=== PATIENT | male | born 1935 | race Hispanic/Latino ===

== ENCOUNTER 2016-10-11 13:01 | Inpatient (IN) | payer MEDICARE, OTHER ==
[~2016-10-11] VITALS: Ht 152.4 cm; Wt 81.2 kg
[2016-10-11] VITALS (7 sets, daily range): BP systolic 75–96; BP diastolic 39–60
[~2016-10-11 13:01] MED LIST: ADVAIR DISK1 IN; ALL DAY10 MG PO; ALLOPURINOL300 MG PO; AMLODIPINE2.5 MG PO; AMLODIPINE5 MG PO; AUGMENTIN500TAB PO; AUGMENTIN875TAB PO; BACLOFEN10 MG PO; CARDIZEM CD 180 PO; CEPHALEXIN500 MG PO; CIPRO500 MG PO; COMBIVENT INH; COREG6.25 MG PO; DOXAZOSIN1 MG PO; ECOTRIN LOW STR81 MG PO; FLOMAX0.4 M1 PO; FLONASE NASAL50 MCG; FLUTICASONE50 MCG; GABAPENTIN300 MG PO; HYDROCO/APAP1 TA9 PO; IMODIUM2 MG PO; IPRATROPIU0.5 MG/3 M NEB; KLOR-CON M2020 MEQ PO; LASIX 40 MG TAB40 MG PO; LASIX 40 MG40 MG/TAB PO; LISINOPRIL10 MG PO; LORTAB 5-325 MG1 TAB PO; LORTAB 7.5 PO; LORTAB 7.57.5 MG PO; LOSARTAN POT50 MG PO; MELOXICAM15 MG PO; MELOXICAM7.5 MG PO; MORPHINE SUL15 MG PO; OMEPRAZOLE20 M2 PO; PERCOCET 5/325M1 TAB PO; PREDNISONE10 MG PO; RESTORIL15 M1 PO; ROBITUSSIN AC10 ML PO; SILDENAFIL20 MG PO; SINGULAIR PO; SYMBICORT1 AE1 IN; TRAZODONE100 MG PO; VANCOMYCIN HCL1.5GM IV; VENTOLIN HFA IN; ZOFRAN ODT4 MG SL
[2016-10-11 13:23] LABS: HEMATOCRIT 30.4 % (39.0-50.0); HEMOGLOBIN 10.3 g/dl (14.0-18.0); MEAN CELL VOLUME 94.4 fL CALC (80.0-100.0); MEAN CORPUSCULAR HGB CONC 33.9 g/L CALC (32.0-36.0); NEUT# 1.72 thou/uL (1.82-7.42); RED BLOOD COUNT 3.22 mill/uL (4.70-6.10); RED CELL DISTRI WIDTH 12.2 % (11.5-15.5)
[2016-10-11 13:35] LABS: ALBUMIN 3.8 g/dL (3.2-5.0); ALKALINE PHOSPHATASE 239 u/l (38-126); ANION GAP 14 (6-22 (CALC)); BILIRUBIN, TOTAL 0.9 mg/dL (0.0-1.4); BUN 17 mg/dL (8-23); BUN/CREATININE RATIO 16 (12-20 (CALC)); CALCIUM 8.1 mg/dL (8.4-10.2); CARBON DIOXIDE 25 mmol/l (22-30); CHLORIDE 107 mmol/l (95-108); CREATININE 1.1 mg/dL (0.7-1.3); GFR > 60 ML/MIN (>=60 (CALC)); GFR FOR AFR.AMER. > 60 ML/MIN (>=60 (CALC)); GLUCOSE 90 mg/dL (82-115); POTASSIUM 4.3 mmol/l (3.5-5.1); SGOT/AST 34 u/l (19-48); SGPT/ALT 27 u/l (11-66); SODIUM 142 mmol/l (137-146); TOTAL PROTEIN 6.8 g/dL (6.3-8.2)
[2016-10-11 13:47] LABS: MYOGLOBIN 81 ng/mL (0 - 121)
[2016-10-11 13:58] LABS: URINE BILIRUBIN - DIPSTICK NEGATIVE (NEGATIVE); URINE BLOOD DIPSTICK MODERATE (NEGATIVE); URINE CLARITY CLEAR; URINE COLOR YELLOW; URINE GLUCOSE - DIPSTICK NEGATIVE (NEGATIVE); URINE KETONE NEGATIVE (NEGATIVE); URINE LEUK ESTERASE NEGATIVE (NEGATIVE); URINE NITRITE - DIPSTICK NEGATIVE (Negative); URINE PROTEIN - DIPSTICK NEGATIVE (NEG-TRACE); URINE UROBILINOGEN - DIPSTICK 0.2 E.U./dL (0.2)
[2016-10-11 14:08] LABS: URINE WBC 0-2 WBC/hpf (0-5)
[2016-10-11] MEDS ORDERED: BICALUTAMIDE50 MG PO (16:15)
[2016-10-11] MEDS ORDERED: ISOSORB MONO30 MG PO (16:16)
[2016-10-11] MEDS ORDERED: LOSARTAN POT50 MG PO ×2 (17:04→17:42)
[2016-10-11] MEDS ORDERED: OMEPRAZOLE20 MG PO (17:06)
[2016-10-11] MEDS ORDERED: MELOXICAM15 MG PO (17:07)
[2016-10-11] MEDS ORDERED: FERR SULFATE325 MG PO (17:24)
[2016-10-11] MEDS ORDERED: METOPROL TAR25 M1 PO (17:41)
[2016-10-11] MEDS ORDERED: REVATIO20 MG PO (17:42)
[2016-10-11] MEDS ORDERED: ASPIRIN81 MG PO (17:45)
[2016-10-11] MEDS ORDERED: KLOR-CON M2020 MEQ PO (17:46)
[2016-10-11] MEDS ORDERED: MONTELUKAST SOD10 MG PO (17:46)
[2016-10-11 21:43] LABS: MAGNESIUM 1.4 mg/dL (1.6-2.3)
[2016-10-11 21:45] LABS: INTERNATIONAL NORMALIZED RATIO 1.1 RATIO (0.7-1.3); PROTHROMBIN TIME 11.9 SECONDS (9.0-12.5)
[2016-10-12] VITALS (11 sets, daily range): BP systolic 102–155; BP diastolic 49–80
[2016-10-12 05:24] LABS: HEMATOCRIT 29.3 % (39.0-50.0); HEMOGLOBIN 9.7 g/dl (14.0-18.0); IMMATURE GRANULOCYTES 0.6 % (0.0-1.0); MEAN CELL VOLUME 96.7 fL CALC (80.0-100.0); MEAN CORPUSCULAR HGB CONC 33.1 g/L CALC (32.0-36.0); NEUT# 3.79 thou/uL (1.82-7.42); RED BLOOD COUNT 3.03 mill/uL (4.70-6.10); RED CELL DISTRI WIDTH 12.6 % (11.5-15.5)
[2016-10-12 05:37] LABS: ALBUMIN 2.8 g/dL (3.2-5.0); ALKALINE PHOSPHATASE 155 u/l (38-126); AMYLASE 60 u/l (30-110); ANION GAP 13 (6-22 (CALC)); BUN 18 mg/dL (8-23); BUN/CREATININE RATIO 16 (12-20 (CALC)); CALCIUM 7.5 mg/dL (8.4-10.2); CARBON DIOXIDE 21 mmol/l (22-30); CHLORIDE 113 mmol/l (95-108); CREATININE 1.1 mg/dL (0.7-1.3); GFR > 60 ML/MIN (>=60 (CALC)); GFR FOR AFR.AMER. > 60 ML/MIN (>=60 (CALC)); GLUCOSE 70 mg/dL (82-115); POTASSIUM 4.4 mmol/l (3.5-5.1); SGOT/AST 36 u/l (19-48); SGPT/ALT 27 u/l (11-66); SODIUM 143 mmol/l (137-146); TOTAL PROTEIN 5.2 g/dL (6.3-8.2)
[2016-10-12 20:17] LABS: TSH, 3RD GENERATION 0.57 uIU/mL (0.47 - 4.68)
[2016-10-13] VITALS (18 sets, daily range): BP systolic 90–131; BP diastolic 38–58
[2016-10-13 03:41] LABS: HEMATOCRIT 31.2 % (39.0-50.0); HEMOGLOBIN 9.6 g/dl (14.0-18.0); IMMATURE GRANULOCYTES 2.3 % (0.0-1.0); MEAN CORPUSCULAR HGB 31.4 pG CALC (26.0-32.0); MEAN CORPUSCULAR HGB CONC 30.8 g/L CALC (32.0-36.0); NEUT# 7.98 thou/uL (1.82-7.42); RED BLOOD COUNT 3.06 mill/uL (4.70-6.10); RED CELL DISTRI WIDTH 12.8 % (11.5-15.5)
[2016-10-13 03:47] LABS: ALBUMIN 3.4 g/dL (3.2-5.0); ALKALINE PHOSPHATASE 140 u/l (38-126); ANION GAP 15 (6-22 (CALC)); BILIRUBIN, TOTAL 0.7 mg/dL (0.0-1.4); BUN 23 mg/dL (8-23); BUN/CREATININE RATIO 18 (12-20 (CALC)); CALCIUM 8.6 mg/dL (8.4-10.2); CARBON DIOXIDE 21 mmol/l (22-30); CHLORIDE 115 mmol/l (95-108); CREATININE 1.3 mg/dL (0.7-1.3); GFR 53 ML/MIN (>=60 (CALC)); GFR FOR AFR.AMER. > 60 ML/MIN (>=60 (CALC)); GLUCOSE 50 mg/dL (82-115); SGOT/AST 55 u/l (19-48); SGPT/ALT 34 u/l (11-66); SODIUM 146 mmol/l (137-146); TOTAL PROTEIN 6.3 g/dL (6.3-8.2)
[2016-10-13 03:51] LABS: POTASSIUM 5.2 mmol/l (3.5-5.1)
[2016-10-13] MEDS ORDERED: BICALUTAMIDE50 MG PO (17:14)
[2016-10-14] VITALS (21 sets, daily range): BP systolic 11–151; BP diastolic 35–71
[2016-10-14 05:46] LABS: HEMATOCRIT 28.6 % (39.0-50.0); HEMOGLOBIN 9.2 g/dl (14.0-18.0); IMMATURE GRANULOCYTES 1.6 % (0.0-1.0); MEAN CELL VOLUME 97.3 fL CALC (80.0-100.0); MEAN CORPUSCULAR HGB 31.3 pG CALC (26.0-32.0); MEAN CORPUSCULAR HGB CONC 32.2 g/L CALC (32.0-36.0); NEUT# 6.46 thou/uL (1.82-7.42); RED BLOOD COUNT 2.94 mill/uL (4.70-6.10); RED CELL DISTRI WIDTH 12.9 % (11.5-15.5)
[2016-10-14 06:05] LABS: CALCIUM 8.6 mg/dL (8.4-10.2); CREATININE 1.6 mg/dL (0.7-1.3); POTASSIUM 3.5 mmol/l (3.5-5.1)
[2016-10-15] VITALS (17 sets, daily range): BP systolic 118–171; BP diastolic 51–83
[2016-10-15 05:56] LABS: HEMOGLOBIN 9.4 g/dl (14.0-18.0); MEAN CELL VOLUME 99.3 fL CALC (80.0-100.0); MEAN CORPUSCULAR HGB 31.1 pG CALC (26.0-32.0); MEAN CORPUSCULAR HGB CONC 31.3 g/L CALC (32.0-36.0); NEUT# 14.25 thou/uL (1.82-7.42); RED BLOOD COUNT 3.02 mill/uL (4.70-6.10); RED CELL DISTRI WIDTH 13.1 % (11.5-15.5)
[2016-10-15 06:18] LABS: CALCIUM 8.8 mg/dL (8.4-10.2); CREATININE 1.6 mg/dL (0.7-1.3); POTASSIUM 3.6 mmol/l (3.5-5.1)
[2016-10-15 06:25] LABS: IMMATURE GRANULOCYTES 5.4 % (0.0-1.0)
[2016-10-16] VITALS (16 sets, daily range): BP systolic 99–173; BP diastolic 51–69
[2016-10-16 06:37] LABS: HEMOGLOBIN 9.8 g/dl (14.0-18.0); MEAN CELL VOLUME 97.7 fL CALC (80.0-100.0); MEAN CORPUSCULAR HGB 31.9 pG CALC (26.0-32.0); MEAN CORPUSCULAR HGB CONC 32.7 g/L CALC (32.0-36.0); NEUT# 5.08 thou/uL (1.82-7.42); RED BLOOD COUNT 3.07 mill/uL (4.70-6.10); RED CELL DISTRI WIDTH 13.3 % (11.5-15.5)
[2016-10-16 06:38] LABS: IMMATURE GRANULOCYTES 10.1 % (0.0-1.0)
[2016-10-16 06:57] LABS: ANION GAP 13 (6-22 (CALC)); BUN 40 mg/dL (8-23); BUN/CREATININE RATIO 33 (12-20 (CALC)); CALCIUM 8.8 mg/dL (8.4-10.2); CARBON DIOXIDE 26 mmol/l (22-30); CHLORIDE 110 mmol/l (95-108); CREATININE 1.2 mg/dL (0.7-1.3); GFR 58 ML/MIN (>=60 (CALC)); GFR FOR AFR.AMER. > 60 ML/MIN (>=60 (CALC)); GLUCOSE 83 mg/dL (82-115); POTASSIUM 3.1 mmol/l (3.5-5.1); SODIUM 146 mmol/l (137-146)
== END 2016-10-16 19:20 | disposition short-term general hospital (02) | DRG 871 ==
LOC: ED 13:01 → ED-I 13:11 → ED 13:11 → ED-I 15:50 → ED 16:24 → ED-I 16:25 → ICU 16:25
PROVIDERS: Emergency Medicine; Internal Medicine; ADMIT Internal Medicine; ATTEND Internal Medicine
PROC: 0T9B70Z Drainage of Bladder with Drainage Device, Via Natural or Artificial Opening (ICD-10-PCS; 2016-10-11)
PROC: 5A0945Z Assistance with Respiratory Ventilation, 24-96 Consecutive Hours (ICD-10-PCS; principal; 2016-10-15)
DX: A41.59 Other Gram-negative sepsis (principal); J15.6 Pneumonia due to other Gram-negative bacteria; J96.21 Acute and chronic respiratory failure with hypoxia; I50.33 Acute on chronic diastolic (congestive) heart failure; N17.9 Acute kidney failure, unspecified; C79.51 Secondary malignant neoplasm of bone; J44.0 Chronic obstructive pulmonary disease with (acute) lower respiratory infection; E83.42 Hypomagnesemia; I13.0 Hypertensive heart and chronic kidney disease with heart failure and stage 1 through stage 4 chronic kidney disease, or unspecified chronic kidney disease; E87.2 Acidosis; R65.20 Severe sepsis without septic shock; I49.1 Atrial premature depolarization; K46.9 Unspecified abdominal hernia without obstruction or gangrene; I27.2 Other secondary pulmonary hypertension; R19.5 Other fecal abnormalities; C61 Malignant neoplasm of prostate; D69.6 Thrombocytopenia, unspecified; N18.3 Chronic kidney disease, stage 3 (moderate); T50.8X5A Adverse effect of diagnostic agents, initial encounter; Z79.899 Other long term (current) drug therapy; Z86.14 Personal history of Methicillin resistant Staphylococcus aureus infection
CPT/HCPCS: J0692; J1650; J3370; Q9967

== ENCOUNTER 2017-08-19 10:09 | Emergency (ER) | payer MEDICARE, OTHER ==
[~2017-08-19] VITALS: Ht 152.4 cm; Wt 90.9 kg
[~2017-08-19 10:09] MED LIST changes: +ASPIRIN81 MG PO; +BICALUTAMIDE50 MG PO; +FERR SULFATE325 MG PO; -FLOMAX0.4 M1 PO; +ISOSORB MONO30 MG PO; +METOPROL TAR25 M1 PO; +MONTELUKAST SOD10 MG PO; +OMEPRAZOLE20 MG PO; +REVATIO20 MG PO; +TAMSULOSIN0.4 MG PO
[2017-08-19] MEDS ORDERED: LASIX 20 MG TAB20 MG PO (10:19)
[2017-08-19] MEDS ORDERED: MELATONIN3 M1 PO (10:20)
[2017-08-19] MEDS ORDERED: MULTI VIT PO (10:23)
[2017-08-19] MEDS ORDERED: POTASSIUM CHLO20 ME2 PO (10:25)
[2017-08-19] MEDS ORDERED: VITAMIN C250 MG PO (10:26)
[2017-08-19] MEDS ORDERED: NEURONTIN600 MG PO (10:28)
[2017-08-19] MEDS ORDERED: MORPHINE SULFAT15 M1 PO (10:28)
[2017-08-19] MEDS ORDERED: [UNRECOGNIZED DRUG - OTHER] OU (10:31)
[2017-08-19] MEDS ORDERED: ACETAMIN325 MG PO (10:32)
[2017-08-19] MEDS ORDERED: GAS-X ULTRA ST180 MG PO (10:35)
[2017-08-19] MEDS ORDERED: ROBITUSSIN AC10 ML PO (10:36)
[2017-08-19] MEDS ORDERED: NORCO1 TA2 PO (10:37)
[2017-08-19] MEDS ORDERED: DUONEB IN (10:37)
[2017-08-19 10:38] LABS: IMMATURE GRANULOCYTES 1.2 % (0.0-1.0); MEAN CELL VOLUME 101.4 fL CALC (80.0-100.0); MEAN CORPUSCULAR HGB 31.7 pG CALC (26.0-32.0); MEAN CORPUSCULAR HGB CONC 31.3 g/L CALC (32.0-36.0); NEUT# 4.42 thou/uL (1.82-7.42); RED BLOOD COUNT 2.9 mill/uL (4.70-6.10); RED CELL DISTRI WIDTH 11.9 % (11.5-15.5)
[2017-08-19] MEDS ORDERED: MILK OF MAG30 ML/UDC PO (10:38)
[2017-08-19 10:40] LABS: HEMATOCRIT 29.4 % (39.0-50.0); HEMOGLOBIN 9.2 g/dl (14.0-18.0)
[2017-08-19] MEDS ORDERED: BIOFREEZE4 % TOP (10:41)
[2017-08-19] MEDS ORDERED: [UNRECOGNIZED DRUG - OTHER] TOP (10:42)
[2017-08-19] MEDS ORDERED: OXYGEN NAB (10:43)
[2017-08-19 10:53] LABS: URINE BILIRUBIN - DIPSTICK NEGATIVE (NEGATIVE); URINE BLOOD DIPSTICK TRACE-INTACT (NEGATIVE); URINE COLOR YELLOW; URINE GLUCOSE - DIPSTICK NEGATIVE (NEGATIVE); URINE KETONE NEGATIVE (NEGATIVE); URINE LEUK ESTERASE NEGATIVE (Negative); URINE NITRITE - DIPSTICK NEGATIVE (Negative); URINE PH 5.5 (4.5-8.0); URINE PROTEIN - DIPSTICK NEGATIVE (NEG-TRACE); URINE SPECIFIC GRAVITY 1.015
[2017-08-19 11:01] LABS: URINE CLARITY CLEAR
[2017-08-19 11:24] LABS: ALKALINE PHOSPHATASE 304 u/l (38-126); BILIRUBIN, TOTAL 0.6 mg/dL (0.0-1.4); BUN 40 mg/dL (8-23); BUN/CREATININE RATIO 37 (12-20 (CALC)); CARBON DIOXIDE 35 mmol/l (22-30); CHLORIDE 93 mmol/l (95-108); CREATININE 1.1 mg/dL (0.7-1.3); GFR > 60 ML/MIN (>=60 (CALC)); GFR FOR AFR.AMER. > 60 ML/MIN (>=60 (CALC)); SGOT/AST 28 u/l (19-48); SGPT/ALT 27 u/l (11-66); SODIUM 139 mmol/l (137-146); TOTAL PROTEIN 6.5 g/dL (6.3-8.2)
[2017-08-19 11:26] LABS: ALBUMIN 3.2 g/dL (3.2-5.0); ANION GAP 16 (6-22 (CALC)); POTASSIUM 4.9 mmol/l (3.5-5.1)
[2017-08-19] MEDS ORDERED: MEDDOSEPAK PO (13:20)
[2017-08-19] MEDS ORDERED: LASIX20 MG PO (13:20)
[2017-08-19] MEDS ORDERED: LEVAQUIN500 MG PO (13:20)
[2017-08-19 13:42] VITALS: BP 120/55
--- NOTE | 2017-08-21 14:07 | NUR ---
PRELIMINARY CULTURE RESULTS CALLED TO ROB PEÑA AT [facility]. WILL FAX FINAL RESULTS WHEN THEY ARE AVALIBLE
== END 2017-08-19 13:35 | disposition home or self-care (01) ==
LOC: ED 10:09
PROVIDERS: Emergency Medicine
DX: J18.9 Pneumonia, unspecified organism (principal); I11.0 Hypertensive heart disease with heart failure; I50.9 Heart failure, unspecified; I25.2 Old myocardial infarction; R50.9 Fever, unspecified; R07.9 Chest pain, unspecified; R53.1 Weakness; C61 Malignant neoplasm of prostate; R06.02 Shortness of breath; Z86.11 Personal history of tuberculosis

== ENCOUNTER 2017-09-03 08:06 | Emergency (ER) | payer MEDICARE, OTHER ==
[~2017-09-03] VITALS: Ht 152.4 cm; Wt 90.0 kg
[~2017-09-03 08:06] MED LIST changes: +ACETAMIN325 MG PO; +BIOFREEZE4 % TOP; +DUONEB IN; +GAS-X ULTRA ST180 MG PO; +LASIX 20 MG TAB20 MG PO; +LASIX20 MG PO; +LEVAQUIN500 MG PO; +MEDDOSEPAK PO; +MELATONIN3 M1 PO; +MILK OF MAG30 ML/UDC PO; +MORPHINE SULFAT15 M1 PO; +MULTI VIT PO; +NEURONTIN600 MG PO; +NORCO1 TA2 PO; +OXYGEN NAB; +POTASSIUM CHLO20 ME2 PO; +VITAMIN C250 MG PO; +[UNRECOGNIZED DRUG - OTHER] OU; +[UNRECOGNIZED DRUG - OTHER] TOP
[2017-09-03 08:32] LABS: HEMATOCRIT 27.2 % (39.0-50.0); HEMOGLOBIN 8.6 g/dl (14.0-18.0); IMMATURE GRANULOCYTES 4.6 % (0.0-1.0); MEAN CORPUSCULAR HGB 31.6 pG CALC (26.0-32.0); MEAN CORPUSCULAR HGB CONC 31.6 g/L CALC (32.0-36.0); NEUT# 9.36 thou/uL (1.82-7.42); RED BLOOD COUNT 2.72 mill/uL (4.70-6.10); RED CELL DISTRI WIDTH 12.8 % (11.5-15.5)
[2017-09-03 08:34] LABS: URINE BILIRUBIN - DIPSTICK NEGATIVE (NEGATIVE); URINE BLOOD DIPSTICK NEGATIVE (NEGATIVE); URINE CLARITY CLEAR; URINE COLOR YELLOW; URINE GLUCOSE - DIPSTICK NEGATIVE (NEGATIVE); URINE KETONE NEGATIVE (NEGATIVE); URINE LEUK ESTERASE NEGATIVE (NEGATIVE); URINE NITRITE - DIPSTICK NEGATIVE (Negative); URINE PROTEIN - DIPSTICK NEGATIVE (NEG-TRACE); URINE UROBILINOGEN - DIPSTICK 0.2 E.U./dL (0.2)
[2017-09-03 08:38] LABS: BARBITURATES NEGATIVE (NEGATIVE); COCAINE NEGATIVE (NEGATIVE); METHADONE NEGATIVE (NEGATIVE); OXCYCODONE NEGATIVE (NEGATIVE); TETRAHYDROCANNABIONOL NEGATIVE (NEGATIVE); TRICYLIC ANTIDEPRESSANTS NEGATIVE (NEGATIVE)
[2017-09-03 08:49] LABS: ALBUMIN 3.1 g/dL (3.2-5.0); BILIRUBIN, TOTAL 0.7 mg/dL (0.0-1.4); TOTAL PROTEIN 6.3 g/dL (6.3-8.2)
[2017-09-03 08:53] LABS: CREATININE 2.8 mg/dL (0.7-1.3); POTASSIUM 6.3 mmol/l (3.5-5.1)
[2017-09-03 10:30] VITALS: BP 156/76
== END 2017-09-03 11:20 ==
LOC: ED 08:06
PROVIDERS: Family Medicine
DX: R41.82 Altered mental status, unspecified (principal); T40.3X1A Poisoning by methadone, accidental (unintentional), initial encounter; Y92.122 Bedroom in nursing home as the place of occurrence of the external cause; E87.5 Hyperkalemia; I12.9 Hypertensive chronic kidney disease with stage 1 through stage 4 chronic kidney disease, or unspecified chronic kidney disease; N18.9 Chronic kidney disease, unspecified; K21.9 Gastro-esophageal reflux disease without esophagitis; I25.2 Old myocardial infarction